=== PATIENT | male | born 1975 | race Caucasian/White ===

== ENCOUNTER 2016-08-28 14:00 | Observation (INO) | payer SELFPAY ==
[~2016-08-28] VITALS: Ht 177.8 cm; Wt 100.7 kg
--- NOTE | 2016-08-31 18:07 | DS ---
ADMIT: 08/28/2016 RM/LOC: 402 [facility] MR#: [id number] [address] [address] TRAVIS COYLEGris Bajwa [address] [place] [address] Discharge Summary SEX: M AGE: 41 : 1975 ADMISSION DATE: 08/28/2016 DISCHARGE DATE: 08/30/2016 The patient left [place] August 30, 2016. CONSULTATIONS: None. FINAL DIAGNOSES: 1. Alcohol abuse. 2. Major depressive disorder. REASON FOR ADMISSION: Please see H and P dictated by Dr. So. However, briefly, admitted to withdraw from alcohol from [place]. HOSPITAL COURSE: Admitted to the service of [facility] under the care of Dr. So. Care was transitioned to myself on August 29. The patient is seen August 30. The day that the patient left [place], I do discuss with him that the previous 24 hours he had declined any Ativan even though he had scores that would necessitate Ativan. He states he does not remember doing that and that that was not true. He is not overtly withdrawing, has no severe tremors, he is not hallucinating and is in interacting with me very well. Do plan potentially to DC him in the next 24 to 48 hours if the patient does not develop no overt signs of withdrawal. I do receive a call from the nurse stating that the patient has decided that he would just like to leave immediately right now. I do discuss with the nurse the patient's desire of why he wants to leave. Patient will not disclose this. He is ranging an AWAS scale from 0 to 2 as he is anxious to discharge at that time. However, they do report to me that he is alert and oriented and acting otherwise appropriately. I do at that time recommend that we maintain the patient in acute hospitalization if he does not indeed requiring Ativan and does remain without signs of acute withdrawal over the next 24 hours, that we can consider discharge tomorrow. The nurse reports the patient does decline this intervention and will leave AMA with full understanding that this potentially could be life threatening choices. ADMIT: 08/28/2016 RM/LOC: 402 [facility] MR#: [id number] [facility] [address] [place] [id number] YOSEF COYLE [address] [address] Discharge Summary SEX: M AGE: 41 : 1975 DISPOSITION: Unknown. Likely home as the patient said his mom is going to come and get him. DISCHARGE MEDICATIONS: The patient left AMA. DISCHARGE CONDITION: Should remain hospitalized. Patient left AMA post AMA directions: The patient is recommended to remain hospitalized for continued monitoring for alcohol withdrawal. If he does develop any signs or symptoms of alcohol withdrawal or does have any further needs, he is to present immediately to the Emergency Department. Donaldo Brooke MD/ ajf JOB #: [id number] CC: Evelin So MD, Attending Physician UNKNOWN, Family Physician
--- NOTE | 2016-09-08 11:48 | HP ---
ADMIT: 08/28/2016 RM/LOC: 402 [facility] MR#: [id number] [facility] [address] [place], [place] [address] YOSEF HALL [address] [place] [address] History and Physical SEX: M AGE: 41 : 1975 DATE OF SERVICE: CHIEF COMPLAINT: Nausea, vomiting, and alcohol withdrawal. HISTORY OF PRESENT ILLNESS: Mr. Hall is a 41-year-old male, who unfortunately has a past medical history significant for long-term history of alcohol abuse. He actually has been through treatment 5 times, reports the longest that he was able to maintain sobriety was about 3 months. He reports he currently he is more of a binge drinker, will have a drink for 3 or 4 days in a row and then not drink for a couple of weeks. Reports that he most recently has been drinking for the last 3 or 4 days. Notes that he has quite a bit of nausea, this started last night. Reports that he has been throwing up. He threw up all night last night. His stomach feels like it is burning otherwise he reports he is not having any burning up into his chest. He has not had any diarrhea or constipation. He has not had a cough or shortness of breath. He reports he has been getting cramps in his feet, but otherwise feels okay. PAST MEDICAL HISTORY: Significant for: 1. Depression. 2. Alcohol use and disorder. 3. Nicotine use. 4. Status post right ankle fracture ORIF. 5. Tonsillectomy. MEDICATION LIST: Currently is: 1. Celexa 40 mg p.o. daily. 2. Multivitamin. 3. Folic acid. 4. Thiamin 100 mg p.o. daily. 5. Potassium 99 mg p.o. daily. ALLERGIES: APPARENTLY, NO KNOWN MEDICAL ALLERGIES. FAMILY HISTORY: He smoked 2 packs a day for 18 years, and he is a binge drinker with whisky, otherwise reports his family history is positive for heart disease, cancer, but no hypertension or diabetes. REVIEW OF SYSTEMS: Obtained, was otherwise essentially negative. PHYSICAL EXAMINATION: GENERAL: He is alert, he is oriented, he really appears to be in no apparent distress. He has a little bit of shaking. His skin is kind of warm, a little bit sweaty HEENT: Pupils are equal, round, reactive. Oropharynx is dry mucous membranes. NECK: Supple. HEART: Tachycardic rate with a regular rhythm. LUNGS: Clear to auscultation bilaterally. ABDOMEN: Obese, soft. Bowel sounds are present. He has had some mid ADMIT: 08/28/2016 RM/LOC: 402 [facility] MR#: [id number] [address] [address] YOSEF HALL [address] [place] [address] History and Physical SEX: M AGE: 41 : 1975 epigastric tenderness. EXTREMITIES: No evidence of edema. ASSESSMENT/PLAN: 1. Acute alcohol intoxication. At this time, his blood alcohol level is actually relatively low. We will monitor for signs of withdrawal with the CIWA scale. 2. Nausea. We will give him some p.r.n. Zofran. 3. Abdominal pain. I suspect this is more of a gastritis. We will go and start him on a PPI. 4. Dehydration. We will give him some IV fluids. 5. Hypokalemia. We will monitor. 6. Hypomagnesemia. We will monitor. 7. Chronic alcoholism. We will go ahead and treat him with a daily thiamine and folate. Otherwise, I did talk to him about treatment. He would like to think about it. 8. Alcohol dependence. Did discuss this with him, and we will go ahead and start him on a patch. Evelin So MD/ deondre JOB #: [id number] CC: Evelin So, Attending Physician UNKNOWN, Family Physician
== END 2016-08-30 13:48 | disposition left against medical advice (07) ==
LOC: 4PCU 14:00
PROVIDERS: ADMIT Internal Medicine
DX: F10.229 Alcohol dependence with intoxication, unspecified (principal); F10.239 Alcohol dependence with withdrawal, unspecified; E86.0 Dehydration; F17.200 Nicotine dependence, unspecified, uncomplicated; K21.9 Gastro-esophageal reflux disease without esophagitis; E83.42 Hypomagnesemia; Z98.890 Other specified postprocedural states; Z79.899 Other long term (current) drug therapy